=== PATIENT | female | born 1965 | race Caucasian/White ===

== ENCOUNTER 2017-06-15 14:04 | Inpatient (IN) | payer SELFPAY ==
[2017-06-15] MEDS ORDERED: Loperamide HCl 2 MG CAP PO PRN (16:44)
[2017-06-15] MEDS ORDERED: Dextrose 5% in Water 1,000 ML IV PRN (16:44)
[2017-06-15] MEDS ORDERED: Ondansetron ODT 4 MG TAB PO PRN (16:44)
[2017-06-15] MEDS ORDERED: Sodium Chloride 0.65% Nasal 44 ML BOT EA NARE PRN (16:44)
[2017-06-15] MEDS ORDERED: Senokot 8.6 MG TAB PO PRN (16:44)
[2017-06-15] MEDS ORDERED: Acetaminophen 325 MG TAB PO PRN (16:44)
[2017-06-15] MEDS ORDERED: Milk Of Magnesia 30 ML UDCUP PO PRN (16:44)
[2017-06-15] MEDS ORDERED: Diabetic Tussin 200 MG/10 ML UDCUP PO PRN (16:44)
[2017-06-15] MEDS ORDERED: Artificial Tears 18 DROP/0.9 ML EA EYE PRN (16:44)
[2017-06-15] MEDS ORDERED: Dextrose 50% Abboject 50 ML SYRINGE SLOW IVP PRN (16:44)
[2017-06-15] MEDS ORDERED: Mag-Al 1200 mg/1200 mg/30 ML UDCUP PO PRN (16:44)
[2017-06-15] MEDS ORDERED: Ondansetron HCl/PF 4 MG/2 ML Vial IVP PRN (16:44)
[2017-06-15] MEDS ORDERED: Eucerin (Mineral Oil/Petrolatum,White) 30 gm Jar TOP PRN (16:44)
[2017-06-15] MEDS ORDERED: Loratadine 10 MG TAB PO PRN (16:44)
[2017-06-15] MEDS ORDERED: Chloraseptic Spray 180 ml Bottle PO PRN (16:44)
--- NOTE | 2017-06-15 17:20 | HP ---
PRIMARY CARE PHYSICIAN: City call admission. REASON FOR ADMISSION: Laryngeal mass. HISTORY OF PRESENT ILLNESS: A 51-year-old female, who has underlying history of diabetes t ype 2, morbid obesity, hypertension, and tobacco abuse disorder, who went to [facility] with complaint of hoarseness of voice. The patient was also having cough and sore throa t for about a week. The patient was evaluated at [facility] and subsequently the patient was not feeling better and that is why she decided to go to the emergency room for evaluation. Initial ly, [facility] doctor. requested chest x-ray, but the patient was feeling more short of breat h and she was wheezing, and that is why they took her to the emergency room in [place]. The patien t also reports hoarseness of voice. She was having low grade fever, cough, malaise, weakness. She denies any flu-like illness. She denies any recent travel or sick exposure, but patient reports emmy t lately she was hearing her own wheezing. She denies any weight loss. She denies any hemoptysis. She denies any lower extremity edema or calf tenderness. At [facility], they suspected laryngitis/epiglottitis. The patient was given clindamyc in, epinephrine nebulization, Rocephin 2 grams, Solu-Medrol 125 mg, albuterol nebulization, and IV f luid, and subsequently she was transferred to our emergency room for evaluation. In our emergency room, Dr. Familia Neil saw this patient and the patient was found with laryngeal m ass suspected for cancer, and he advised to get admitted for further evaluation and treatment. REVIEW OF SYSTEMS: The following complete review of systems was negative, unless otherwise mentione d in the HPI or below: Constitutional: Weight loss or gain, ability to conduct usual activities. Skin: Rash, itching. E yes: Double vision, pain. ENT/Mouth: Nose bleeding, neck stiffness, pain, tenderness. Cardiovascular: Palpitations, dyspnea on exertion, orthopnea. Respiratory: Shortness of breath, w heezing, cough, hemoptysis, fever or night sweats. Gastrointestinal: Poor appetite, abdominal pain , heartburn, nausea, vomiting, constipation, or diarrhea. Genitourinary: Urgency, frequency, dysuri a, nocturia. Musculoskeletal: Pain, swelling. Neurologic/Psychiatric: Anxiety, depression. Kennedy rgy/Immunologic: Skin rash, bleeding tendency. Please see HPI for pertinent positives and negatives. All other review of systems reviewed and nega tive except as mentioned in the HPI. EMERGENCY ROOM COURSE: The patient is given clindamycin 900 mg, epinephrine nebulization x2, Roceph in 2 grams, Solu-Medrol 125 mg, albuterol nebulization, and IV fluid. ALLERGIES: No known drug allergies. CURRENT HOME MEDICATIONS: Levemir insulin dose not known, metformin dose not known. The patient di d not bring her medication and she is not able to tell me the name of medication, so unable to revie w at this point. PAST MEDICAL HISTORY: Diabetes type 2, hypertension, morbid obesity, and tobacco abuse disorder. PAST SURGICAL HISTORY: Reviewed and negative. PAST PSYCHIATRIC HISTORY: Reviewed and negative. SOCIAL HISTORY: The patient is smoking about 1 pack per day for the last many years. She denies an y alcohol abuse. She denies any other illicit drug abuse. FAMILY HISTORY: No strong family history of premature coronary artery disease, stroke, or cancer. PHYSICAL EXAMINATION: VITAL SIGNS: Currently, blood pressure 153/92, pulse 93, respiratory rate 24, temperature 97.7, sat uration 96% on 4 liter oxygen, and weight 102.5 kilograms. GENERAL: The patient is currently alert, awake, no obvious acute distress. HEENT: Head is normocephalic, atraumatic. Eyes: Pupils round, reactive to light. Extraocular mus tish intact. ENT: Oropharynx within normal limits. Moist mucous membranes. No oral lesions. No pharyngeal lamin thema, no exudate. NECK: Supple. Range of motion is normal. No meningeal signs of irritation. LUNGS: Bilateral end expiratory wheezing heard. CARDIAC: S1 and S2 regular. No murmur, no gallop, no rub. ABDOMEN: Soft, bowel sounds present, nontender, nondistended. No organomegaly, no mass, no suprapu bic tenderness. BACK: Unremarkable, no CVA tenderness. EXTREMITIES: Upper extremity passive movement of all joints are normal. Lower extremities: No callie ma. Good peripheral pulsation. SKIN: No skin rash. HEMATOLOGICAL: No lymphadenopathy. NEUROLOGIC: Nonfocal examination. The patient moves all 4 limbs. Plantar bilateral flexor. PSYCHIATRIC: Normal affect. SIGNIFICANT LABORATORY DATA: Blood tests done at [facility], reviewed. CBC: WBC 12.0 , hemoglobin 14.7, platelet 287. BMP: Sodium 132, potassium 4.1, chloride 93, carbon dioxide 30, B UN 11, creatinine 0.60, glucose 231, calcium 9.2. Lactic acid 1.2. LFT: AST 15, ALT 22, alkaline phosphatase 92, albumin 4.0. Urinalysis, microscopic hematuria. Tel emetry monitor showing sinus rhythm. ASSESSMENT AND PLAN: 1. Acute hypoxic respiratory failure, most likely related with acute chronic obstructive pulmonary disease exacerbation. This patient may have a new diagnosis of chronic obstructive pulmonary diseas e. The patient also has underlying laryngitis as well as laryngeal mass that also contributing to h er hypoxia. We will monitor closely. We will avoid sedatives. We will treat with oxygen, we will provide humidified oxygen. We will monitor daily, her oxygen requirement. We will treat with Solu- Medrol 20 mg IV q.8 hourly along with DuoNeb q.4 hourly, and Dulera 2 puffs inhalation b.i.d. We wi ll consider empiric antibiotic therapy with Rocephin 2 gram IV daily. 2. Chronic obstructive pulmonary disease exacerbation. This patient probably has new diagnosis of chronic obstructive pulmonary disease/asthma. Once patient's condition improves, then we will perfo rm pulmonary function test to rule out obstructive restrictive pathology. At this point, the patien t will be treated with Solu-Medrol 20 mg IV q.8 hourly, DuoNeb q.4 hourly, Dulera 2 puffs inhalation b.i.d., and oxygen to keep saturation above 92% and empiric antibiotic therapy with Rocephin 2 gram IV daily. 3. Laryngeal mass with acute laryngitis. We will check a Streptococcal screen. The patient is alr april on empiric antibiotic therapy with Rocephin. ENT, Dr. Familia Neil already consulted, and he is planning to do a laryngoscopy and biopsy to rule out laryngeal cancer. She may need laryngectomy if turning lathe tender to be cancer. 4. Diabetes type 2. We will start Levemir 10 units subcutaneously b.i.d., insulin as per sliding s theron protocol. Diabetic diet will be given. 5. Hypertension. We will use currently hydralazine p.r.n. basis for blood pressure control. Befor e discharge, we will change to oral antihypertensive medication including amlodipine or lisinopril. 6. Morbid obesity. Dietary education given, weight loss education given. Healthy lifestyle measur es discussed with the patient. 7. Tobacco abuse disorder. Smoking cessation counseling given. We will provide nicotine patch marquis cannon in hospital. 8. Deep venous thrombosis prophylaxis, Lovenox 40 mg subcu daily. 9. Gastrointestinal prophylaxis, Pepcid 20 mg p.o. b.i.d. 10. Code status: The patient is FULL CODE. The patient does not have any surrogate decision maker . 11. Disposition plan based on clinical course. We are expecting the patient's stay in hospital mor e than 2 midnights. Plan of care discussed with the patient and family member at bedside.
[2017-06-15] MEDS: Sodium Chloride 0.9% 1,000 ML IV SCH (18:45)
[2017-06-15] MEDS: HumaLOG 300 UNITS/3 ML VIAL SC PRN (18:45)
[2017-06-15] MEDS: Mometasone/Formoterol 120 PUFF INHALER INH SCH (18:53)
--- NOTE | 2017-06-15 19:44 | CON ---
DATE OF CONSULTATION: 06/15/2017 The patient is seen in consultation by Dr. Florentino in the ER for evaluation of stridor and possible epi glottitis. BRIEF HISTORY: This is a 51-year-old female who was transferred from [facility] for concern for ep iglottitis. There is thickened epiglottis on the CAT scan. Patient reports a several week history of progressive shortness of breath and inspiratory stridor and dyspnea on exertion. She denies any hemoptysis. She only reports some mild cough. She does report feeling as if she got mild cold in t he past 3-4 days, which made this rapidly progressed over the past day to two. No fevers. She is s till tolerating regular solids and liquids. She still has been smoking even to this stay. PAST MEDICAL HISTORY: Diabetes, hypertension. PAST SURGICAL HISTORY: Noncontributory. ALLERGIES: No known drug allergies. MEDICATIONS: Diabetic medicines and inhaler p.r.n. REVIEW OF SYSTEMS: General: No fevers, chills, or weight loss. HEENT: No history of progressive hoarseness of this n ature, only mild sinus and allergy drainage. Cardiovascular: No chest pains, palpitations. Pulmon etta: No cough or wheezing. Hematologic: No history of bleeding disorders. PHYSICAL EXAMINATION: GENERAL: Patient is resting comfortably upright. She has inspiratory stridor. Voice is harsh and raspy, otherwise she is in good spirits. NECK: No lymphadenopathy, no masses, thyroid within normal limits. EARS: TMs intact. Middle ear is well aerated. NOSE: Nasal cavity is clear anteriorly. ORAL CAVITY AND OROPHARYNX: Tonsils are 1+ to absent. There is no edema or erythema of the pharyng eal oral cavity mucosa. PROCEDURE: At the bedside, flexible laryngoscopy was performed after topical anesthesia and deconge stant was applied to the nasal cavity and the flexible laryngoscope was advanced in the right nasal cavity. Nasal cavity and nasopharynx showed no lesions. The lower pharynx and larynx is generally red. No evidence of epiglottitis. There is some stringy mucus that is thickened present. Otherwis e, there is a cauliflower exophytic lesion arising from what appears to be the left true vocal cord but extending to the anterior commissure causing limited vocal cord movement bilaterally. Overall a irway is 7 mm to 1 cm posteriorly secretions in the post-cricoid area. ASSESSMENT: 1. Laryngeal mass. 2. Stridor. 3. 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 No evidence of epiglottitis at this point, I recommend she have observations overnight and admitted to [facility] for IV fluid hydration and IV antibiot ics. We discussed risks, benefits and alternatives of biopsy, possible tracheotomy tomorrow in the operating room. She is cleared for full liquid diet today and tonight, n.p.o. after midnight.
[2017-06-15] MEDS: Insulin Detemir 100 UNITS/ML 10 UNITS in Pre-Filled Syringe SC SCH (21:00)
[2017-06-15] MEDS: Famotidine 20 MG TAB PO SCH (21:00)
[2017-06-16] MEDS: Sodium Chloride 0.9% 1,000 ML IV SCH ×3 (03:33→20:25)
[2017-06-16 03:43] LABS: Oxyhemoglobin 90.3 % (94.0-97.0); Sodium 135 mmol/L (135-148)
[2017-06-16 03:44] LABS: Modified Allen's Test POSITIVE
[2017-06-16 04:12] LABS: #Lymphocytes 1.1 thou/uL (1.20-3.40); #Monocytes 0.8 thou/uL (0.11-0.59); #Neutrophils 14.1 thou/uL (1.40-6.50); %Basophils 0.1 % (0.0-1.0); %Eosinophils 0.1 % (0.0-10.0); %Lymphocytes 6.8 % (21.0-51.0); %Monocytes 4.9 % (0.0-10.0); Hematocrit 47.3 % (36.0-47.0); Mean Platelet Volume 7.4 fL (7.4-10.4); Red Blood Cell (RBC) Count 4.86 mill/uL (4.20-5.40)
[2017-06-16 04:37] LABS: ALT (SGPT) 19 U/L (8-55); AST (SGOT) 15 U/L (5-34); Alkaline Phosphatase 97 U/L (40-150); Anion Gap 12 mmol/L (10-20); BUN (Urea Nitrogen) 10 mg/dL (7.0-18.7); Bilirubin, Total 0.3 mg/dL (0.2-1.2); Calc. Creatinine Clearance 164 mL/min (70-130); Calcium 9.1 mg/dL (7.8-10.44); Carbon Dioxide 29 mmol/L (22-29); Chloride 98 mmol/L (98-107); Estimated GFR-MDRD Greater than 90; Globulin 3.4 g/dL (2.4-3.5); Protein, Total 7.2 g/dL (6.0-8.3)
[2017-06-16] MEDS: Mometasone/Formoterol 120 PUFF INHALER INH SCH (06:31)
[2017-06-16 06:43] LABS: Oxyhemoglobin 91.7 % (94.0-97.0); Sodium 135 mmol/L (135-148)
[2017-06-16 06:44] LABS: Mode BIPAP; Pressure Support 15 cmH2O; Vent NO
[2017-06-16] MEDS ORDERED: FLU VACC QS2017-18 36 mo. & older 0.5 ML SYRINGE IM ONE (09:00)
[2017-06-16] MEDS ORDERED: Nicotine 21 MG PATCH TD SCH (09:00)
[2017-06-16] MEDS ORDERED: Midazolam HCl 2 mg/2 ml Vial ONE (09:04)
[2017-06-16] MEDS ORDERED: Propofol 1,000 MG/100 ML VIAL IV ONE ×2 (09:05→10:51)
[2017-06-16] MEDS ORDERED: Fentanyl 250 MCG/5 ML VIAL ONE (09:24)
[2017-06-16] MEDS: Insulin Detemir 100 UNITS/ML 10 UNITS in Pre-Filled Syringe SC SCH ×2 (09:25→20:22)
[2017-06-16] MEDS: Famotidine 20 MG TAB PO SCH (09:25)
[2017-06-16] MEDS ORDERED: EPINEPHrine 1 MG/ML AMP ONE (09:29)
[2017-06-16] MEDS ORDERED: Succinylcholine Chloride 20 MG/ML 10 ml SYRINGE FS ONE (09:47)
[2017-06-16] MEDS ORDERED: Propofol 200 MG/20 ML VIAL ONE (09:47)
--- NOTE | 2017-06-16 11:01 | PDOC.PN ---
- Subjective Encounter Start Date: 06/16/17 Encounter Start Time: 10:15 -: old records requested/rev pt required CCU transfer as she has not improved with BIPAP, last night required IMCU transfer due to respiratory distress - Objective Resuscitation Status: Resuscitation Status FULL:Full Resuscitation MAR Reviewed: Yes Vital Signs & Weight: Vital Signs (12 hours) Temp Pulse Resp BP BP Pulse Ox 06/16/17 10:17 105 H 06/16/17 09:15 105 H 28 H 100 06/16/17 08:10 98.2 F 80 16 99 06/16/17 08:00 98.2 F 06/16/17 06:57 97.6 F 96 20 178/89 H 94 L 06/16/17 06:29 101 H 06/16/17 06:28 102 H 22 H 97 06/16/17 04:30 96.6 F L 96 20 96 06/16/17 04:10 99 06/16/17 04:05 96.6 F L 82 20 156/98 H 96 06/16/17 00:00 98.9 F 83 18 167/66 H 06/15/17 23:59 80 16 95 Weight Weight 222 lb 7 oz Most Recent Monitor Data Heart Rate from ECG 94 NIBP 192/85 NIBP BP-Mean 120 Respiration from ECG 19 SpO2 98 I&O: 06/15/17 06/16/17 06/17/17 06:59 06:59 06:59 Intake Total 240 Output Total 550 Balance -310 Result Diagrams: 06/16/17 03:44 06/16/17 03:44 Additional Labs: Accuchecks 06/16/17 06/16/17 06/15/17 07:41 05:35 20:06 POC Glucose 246 H 257 H 338 H 06/15/17 16:59 POC Glucose 255 H EKG Reviewed by me: Yes (sinus tachycardia) Phys Exam - Physical Examination respi distress HEENT: PERRLA, moist MMs, sclera anicteric Neck: no JVD, supple Respiratory: no wheezing, no rales, no rhonchi silent chest Cardiovascular: RRR, no significant murmur, no rub tachycardia Gastrointestinal: soft, non-tender, no distention, positive bowel sounds obesity+ Musculoskeletal: no edema, pulses present Neurological: non-focal, normal sensation, moves all 4 limbs Lymphatic: no nodes Psychiatric: normal affect Skin: no rash, normal turgor Dx/Plan (1) Acute respiratory failure with hypoxia and hypercapnia Code(s): J96.01 - ACUTE RESPIRATORY FAILURE WITH HYPOXIA; J96.02 - ACUTE RESPIRATORY FAILURE WITH HYPERCAPNIA Status: Acute (2) Laryngeal mass Code(s): J38.7 - OTHER DISEASES OF LARYNX Status: Acute (3) Diabetes type 2, controlled Code(s): E11.9 - TYPE 2 DIABETES MELLITUS WITHOUT COMPLICATIONS Status: Chronic (4) Hypertension Code(s): I10 - ESSENTIAL (PRIMARY) HYPERTENSION Status: Chronic (5) Obesity (BMI 30-39.9) Code(s): E66.9 - OBESITY, UNSPECIFIED Status: Chronic (6) Tobacco abuse Code(s): Z72.0 - TOBACCO USE Status: Chronic - Plan cont current plan of care, plan discussed w/ family, continue antibiotics, respiratory therapy * she has not improved with bipap, she will need intubation * pulmonary following * ENT is planning to do surgery, may need laryngectomy and tracheostomy * medication reviewed as below * symptomatic treatment * prognosis is poor * continue rocephin * continue IV steroid * continue duoneb. Review of Systems - Review of Systems Constitutional: negative: Fever, Chills, Sweats, Weakness, Malaise, Other Respiratory: Cough, Shortness of Breath, SOB with Excertion. negative: Dry, Hemoptysis, Pleuritic Pain, Sputum, Wheezing Cardiovascular: Orthopnea. negative: Chest Pain, Palpitations, Paroxysmal Noc. Dyspnea, Edema, Light Headedness, Other Gastrointestinal: negative: Nausea, Vomiting, Abdominal Pain, Diarrhea, Constipation, Melena, Hematochezia, Other Genitourinary: negative: Dysuria, Frequency, Incontinence, Hematuria, Retention , Other Musculoskeletal: negative: Neck Pain, Shoulder Pain, Arm Pain, Back Pain, Hand Pain, Leg Pain, Foot Pain, Other Skin: negative: Rash, Lesions, Kirk, Bruising, Other - Medications/Allergies Allergies/Adverse Reactions: Allergies Allergy/AdvReac Type Severity Reaction Status Date / Time No Known Drug Allergies Allergy Verified 06/15/17 16:48 Medications: Current Medications Acetaminophen (Tylenol) 650 mg PO Q4H PRN PRN Reason: Headache/Fever or Pain Al Hydroxide/Mg Hydroxide (Maalox) 30 ml PO Q6H PRN PRN Reason: Heartburn or Indigestion Albuterol/Ipratropium (Duoneb) 3 ml NEB [id number] [facility] Last Admin: 06/16/17 09:15 Dose: 3 ml Artificial Tears (Tears Naturale) 0 drop EA EYE PRN PRN PRN Reason: Dry Eyes Dextrose/Water (Dextrose 50%) 25 gm SLOW IVP PRN PRN PRN Reason: Hypoglycemia Enoxaparin Sodium (Lovenox) 40 mg SC 0900 [facility] Famotidine (Pepcid) 20 mg PO BID [facility] Last Admin: 06/16/17 09:25 Dose: Not Given Glucagon (Glucagon) 1 mg IM PRN PRN PRN Reason: Hypoglycemia Guaifenesin (Robitussin Sf) 200 mg PO Q4H PRN PRN Reason: Cough Hydralazine HCl (Apresoline) 10 mg SLOW IVP Q4H PRN PRN Reason: Systolic BP > 180 Dextrose/Water (D5w) 1,000 mls @ 0 mls/hr IV .Q0M PRN; As Directed PRN Reason: Hypoglycemia Sodium Chloride (Normal Saline 0.9%) 1,000 mls @ 100 mls/hr IV .Q10H [facility] Last Admin: 06/16/17 03:33 Dose: 1,000 mls Insulin Detemir 10 units/ (Miscellaneous Medication) 0.1 mls @ 0 mls/hr SC HS [facility] Last Admin: 06/15/17 21:00 Dose: 0.1 mls Insulin Detemir 10 units/ (Miscellaneous Medication) 0.1 mls @ 0 mls/hr SC QAM [facility] Last Admin: 06/16/17 09:25 Dose: Not Given Ceftriaxone Sodium 2 gm/ (Sodium Chloride) 100 mls @ 200 mls/hr IVPB Q24HR [facility] Insulin Human Lispro (Humalog) 0 units SC .MODERATE SLIDING SC PRN PRN Reason: Moderate Correctional Scale Last Admin: 06/15/17 18:45 Dose: 4 unit Insulin Human Lispro (Humalog) 0 units SC .BEDTIME SLIDING SC PRN PRN Reason: Bedtime Correctional Scale Loperamide HCl (Imodium) 2 mg PO PRN PRN PRN Reason: Diarrhea/Loose Stools Loratadine (Claritin) 10 mg PO DAILYPRN PRN PRN Reason: Sinus Symptoms Magnesium Hydroxide (Milk Of Magnesium) 30 ml PO DAILYPRN PRN PRN Reason: Constipation Methylprednisolone Sodium Succinate (Solu-Medrol) 20 mg IVP Q8HR [facility] Last Admin: 06/16/17 06:02 Dose: 20 mg Mineral Oil/White Petrolatum (Eucerin Cream) 0 gm TOP BIDPRN PRN PRN Reason: Dry Skin Mometasone Furoate/Formoterol Fumar (Dulera 200 Mcg/5 Mcg Inhaler) 2 puff INH BID-RT [facility] Last Admin: 06/16/17 06:31 Dose: Not Given Nicotine (Nicoderm Patch) 21 mg TD DAILY MARY Ondansetron HCl (Zofran Odt) 4 mg PO Q6H PRN PRN Reason: Nausea/Vomiting Ondansetron HCl (Zofran) 4 mg IVP Q6H PRN PRN Reason: Nausea/Vomiting Phenol (Chloraseptic [place] 180 Ml Bot) 0 ml PO PRN PRN PRN Reason: Sore Throat Senna (Senokot) 2 tab PO HSPRN PRN PRN Reason: Constipation Sodium Chloride ([place] Nasal [place] 0.65%) 0 ml EA NARE QIDPRN PRN PRN Reason: Nasal Congestion
[2017-06-16] MEDS ORDERED: Lacri-Lube Opth Oint 3.5 GM TUBE EA EYE PRN (11:09)
[2017-06-16] MEDS ORDERED: Sedation Protocol FS ONE (11:09)
[2017-06-16] MEDS: cefTRIAXone\\ROCEPHIN 2 GM in Sodium Chloride 0.9% 100 ML IVPB SCH (11:11)
[2017-06-16] MEDS: Enoxaparin Sodium 40 MG/0.4 ML SYRINGE SC SCH (11:11)
[2017-06-16] MEDS ORDERED: Lorazepam 2 MG/ML VIAL SLOW IVP PRN (11:13)
[2017-06-16] MEDS ORDERED: Fentanyl 20 MCG/ML 250 ML IVPB SCH (11:13)
[2017-06-16 11:50] LABS: Oxyhemoglobin 91.3 % (94.0-97.0); Sodium 136 mmol/L (135-148)
[2017-06-16 11:57] LABS: Modified Allen's Test POSITIVE; Vent YES
[2017-06-16 11:58] LABS: Mechanical Tidal Volume 430 ml; Mode SIMV; Pressure Support 17 cmH2O
[2017-06-16] MEDS: HumaLOG 300 UNITS/3 ML VIAL SC PRN ×2 (12:18→18:19)
--- NOTE | 2017-06-16 12:49 | CON ---
DATE OF SERVICE: 06/16/2017 SERVICE: Pulmonary Medicine. REASON FOR CONSULTATION: Respiratory failure. HISTORY OF PRESENT ILLNESS: The patient is a 51-year-old white female with past medical history significant for new diagnosis of increasing dysphagia and dysphonia. She had increasing difficulty breathing with stridor. She presented to the Emergency Department in respiratory distress. She was seen yesterday by ear, nose and throat and they are planning on doing an operation today including a biopsy and possible tracheostomy based on what they find. Overnight, she down from the floor to the [facility]. She had placed on noninvasive ventilation, but further decompensated and subsequently landed in the ICU. She developed hypercapnic acidosis. She had a difficult time breathing. On BiPAP, she failed to clear that acidosis. She developed increasing altered mentation. As such, we are going to intubate her, but they moved up her surgery and she is being taken to the OR as I speak. She had no other precipitating event so far as I am aware. Otherwise, she was in her usual state of health. She is not able to provide additional elements of the history at this time given her encephalopathy. PAST MEDICAL HISTORY: 1. Type 2 diabetes mellitus. 2. Hypertension. 3. Obesity. 4. Tobacco abuse. PAST SURGICAL HISTORY: Negative. SOCIAL HISTORY: She smokes a pack a day for greater than 20 years. She denies any alcohol or illicit drugs. FAMILY HISTORY: Noncontributory. REVIEW OF SYSTEMS: This could not be obtained as the patient is currently encephalopathic. PHYSICAL EXAMINATION: VITAL SIGNS: Afebrile, pulse 94, blood pressure 192/85, respirations 19, saturation 98% on 21% FIO2 being delivered by BiPAP at 10/5. GENERAL: Patient is somnolent. HEENT: Normocephalic, atraumatic. Sclerae are white, conjunctivae pink. Oral and nasal mucosa is moist without lesions. LUNGS: There is absolutely absent breath sounds. She is moving very little air. I cannot appreciate any adventitious sounds, but truth be told, she is not moving enough air to hear it. HEART: Normal rate. Regular. ABDOMEN: Soft, nontender, nondistended, bowel sounds positive. MUSCULOSKELETAL: No cyanosis or clubbing. No pitting in the bilateral lower extremities. NEUROLOGIC: Grossly nonfocal. LABORATORY DATA: WBC 16.0, hemoglobin 15.1, platelets 348,000 with a neutrophil count of 88%. PH 7.31, pCO2 67, pO2 68 on a PEEP of 7 and an FIO2 of 28%. Basic metabolic profile and liver function studies are completely unremarkable. Blood sugars are out of control and ranged from 246-338. Tonsils swab is negative for group A Streptococcus. IMAGIN. Chest x-ray demonstrates no acute cardiopulmonary abnormality. Lung volumes are normal. I do not appreciate any pneumonia. Trachea is midline and looks to be widely patent. 2. X-ray of the soft tissues of the neck, looking at the epiglottis demonstrated some swelling in the laryngeal area. ASSESSMENT: 1. Metabolic encephalopathy. 2. Acute hypercapnic respiratory failure. 3. Fixed extrathoracic airway obstruction. 4. Laryngeal mass, possible. 5. Type 2 diabetes mellitus. 6. Tobacco abuse. PLAN: She will go down to the operating room and likely come back with a tracheostomy. I will certainly continue to follow in the postoperative setting. Ventilator adjustments will be made to target goals of respiration, when she returns from the OR if she is on a ventilator. CRITICAL CARE TIME: 45 minutes. RAVI
--- NOTE | 2017-06-16 13:34 | OP ---
PREOPERATIVE DIAGNOSES: Chronic obstructive pulmonary disease, tobacco abuse, acute upper airway ob struction, and obstructing laryngeal lesion. POSTOPERATIVE DIAGNOSES: Chronic obstructive pulmonary disease, tobacco abuse, acute upper airway o bstruction, obstructing laryngeal lesion, and Arturo's edema. 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 Biopsies were obtained and spe cimen was sent as it was captured in a suction trap. PROCEDURE IN DETAIL: After consent was obtained, the patient was identified, brought to the operati ng room and placed on the operating table in supine position. General anesthesia was obtained throu gh the GlideScope. We then proceeded with laryngoscopy and found the vocal folds to be extensively edematous including both the true and false cords. No discrete tumor was identified, but we were ab le to get biopsies of the true and false cords on the left and right side. We also captured the spe cimen with the shaver. The normal laryngeal aperture was appreciated after the shaver was used to r emove the polyps and epinephrine was placed to stop bleeding. The patient will remain intubated ove rnight while her pulmonary status stabilizes. There were no complications.
[2017-06-16] MEDS: Propofol 1,000 MG/100 ML VIAL IV PRN ×3 (14:17→21:20)
[2017-06-16] MEDS: Pantoprazole 40 MG VIAL IVP SCH (20:21)
[2017-06-17] MEDS: Propofol 1,000 MG/100 ML VIAL IV PRN ×6 (00:04→23:50)
[2017-06-17 04:31] LABS: Anion Gap 12 mmol/L (10-20); BUN (Urea Nitrogen) 17 mg/dL (7.0-18.7); Calc. Creatinine Clearance 161 mL/min (70-130); Calcium 8.3 mg/dL (7.8-10.44); Carbon Dioxide 26 mmol/L (22-29); Chloride 103 mmol/L (98-107); Estimated GFR-MDRD Greater than 90
[2017-06-17] MEDS: Sodium Chloride 0.9% 1,000 ML IV SCH ×2 (04:32→16:42)
[2017-06-17] MEDS: HumaLOG 300 UNITS/3 ML VIAL SC PRN ×2 (04:34→10:06)
[2017-06-17 05:24] LABS: Band 1 % (5-11); Hematocrit 37.7 % (36.0-47.0); Mean Platelet Volume 7.5 fL (7.4-10.4); Neutrophil 50 % (42-75); Reactive Lymphocytes 5 % (0-10); Red Blood Cell (RBC) Count 3.93 mill/uL (4.20-5.40); White Blood Cell (WBC) Count 9.2 thou/uL (4.8-10.8)
[2017-06-17] MEDS: Insulin Detemir 100 UNITS/ML 10 UNITS in Pre-Filled Syringe SC SCH ×2 (09:56→21:26)
[2017-06-17] MEDS: Enoxaparin Sodium 40 MG/0.4 ML SYRINGE SC SCH (09:56)
[2017-06-17] MEDS: Pantoprazole 40 MG VIAL IVP SCH ×2 (09:56→21:27)
--- NOTE | 2017-06-17 10:17 | RAD ---
FRONTAL VIEW CHEST: COMPARISON: Examination 2 days prior. INDICATION: Ventilated patient, ICU patient. FINDINGS: Interval placement of the endotracheal tube with tip at the cephalad aspect of the thoracic inlet, a nd interval placement of an enteric catheter traversing the left abdomen below the field of view. T here are bilateral pleural effusions, as well as vascular congestion and interstitial edema. Linear densities at the left lung base favor atelectasis. There is prominence of the cardiac silhouette a t least in part due to accentuation by portable semiupright technique. Extrinsic artifact limits de tail. IMPRESSION: Evidence of edema with pleural effusions, and left basilar atelectasis. Recommend continued followup. POS: [facility]
[2017-06-17] MEDS: cefTRIAXone\\ROCEPHIN 2 GM in Sodium Chloride 0.9% 100 ML IVPB SCH (11:07)
--- NOTE | 2017-06-17 11:58 | PDOC.PN ---
- Subjective Encounter Start Date: 06/17/17 Encounter Start Time: 07:00 Subjective: on vent, awake, not in distress - Objective Resuscitation Status: Resuscitation Status FULL:Full Resuscitation MAR Reviewed: Yes Vital Signs & Weight: Vital Signs (12 hours) Temp Pulse Resp BP Pulse Ox 06/17/17 10:00 14 06/17/17 08:00 98.4 F 74 18 97 06/17/17 06:14 97 06/17/17 06:11 74 117/57 L 06/17/17 06:10 70 17 97 06/17/17 05:59 0 L 06/17/17 03:57 20 06/17/17 03:00 98.2 F 06/17/17 02:39 70 15 96 06/17/17 02:00 21 H 06/17/17 00:00 99.4 F 21 H Weight Admit Weight 222 lb Weight 224 lb 13.944 oz Most Recent Monitor Data Heart Rate from ECG 64 NIBP 157/78 NIBP BP-Mean 95 Respiration from ECG 17 SpO2 96 I&O: 06/16/17 06/17/17 06/18/17 06:59 06:59 06:59 Intake Total 240 2662.9 29.1 Output Total 550 755 139 Balance -310 1907.9 -109.9 Result Diagrams: 06/17/17 03:10 06/17/17 03:10 Additional Labs: Accuchecks 06/17/17 06/16/17 06/16/17 10:04 22:05 18:16 POC Glucose 184 H 157 H 199 H 06/16/17 12:11 POC Glucose 286 H Phys Exam - Physical Examination HEENT: PERRLA, sclera anicteric Neck: no JVD, supple Respiratory: no wheezing, no rales Cardiovascular: RRR, no significant murmur Gastrointestinal: soft, non-tender, positive bowel sounds Musculoskeletal: no edema, pulses present Neurological: non-focal, moves all 4 limbs Dx/Plan (1) Acute respiratory failure with hypoxia and hypercapnia Code(s): J96.01 - ACUTE RESPIRATORY FAILURE WITH HYPOXIA; J96.02 - ACUTE RESPIRATORY FAILURE WITH HYPERCAPNIA Status: Acute (2) Laryngeal mass Code(s): J38.7 - OTHER DISEASES OF LARYNX Status: Acute Comment: s/p laryngoscopy with biopsy (3) Diabetes type 2, controlled Code(s): E11.9 - TYPE 2 DIABETES MELLITUS WITHOUT COMPLICATIONS Status: Chronic Qualifiers: Diabetes mellitus complication status: with unspecified complications Diabetes mellitus fdc insulin use: without fdc use Qualified Code( s): E11.8 - Type 2 diabetes mellitus with unspecified complications (4) Hypertension Code(s): I10 - ESSENTIAL (PRIMARY) HYPERTENSION Status: Chronic Qualifiers: Hypertension type: essential hypertension Qualified Code(s): I10 - Essential (primary) hypertension (5) Obesity (BMI 30-39.9) Code(s): E66.9 - OBESITY, UNSPECIFIED Status: Chronic - Plan weaning per pulm advice -: is on ceftriaxone, nebs -: may add steroids if ok with ent -: gentle iv hydration * . Review of Systems - Medications/Allergies Allergies/Adverse Reactions: Allergies Allergy/AdvReac Type Severity Reaction Status Date / Time No Known Drug Allergies Allergy Verified 06/15/17 16:48 Medications: Current Medications Acetaminophen (Tylenol) 650 mg PO Q4H PRN PRN Reason: Headache/Fever or Pain Al Hydroxide/Mg Hydroxide (Maalox) 30 ml PO Q6H PRN PRN Reason: Heartburn or Indigestion Albuterol/Ipratropium (Duoneb) 3 ml NEB [id number] [facility] Last Admin: 06/17/17 06:10 Dose: 3 ml Artificial Tears (Tears Naturale) 0 drop EA EYE PRN PRN PRN Reason: Dry Eyes Dextrose/Water (Dextrose 50%) 25 gm SLOW IVP PRN PRN PRN Reason: Hypoglycemia Enoxaparin Sodium (Lovenox) 40 mg SC 0900 [facility] Last Admin: 06/17/17 09:56 Dose: 40 mg Glucagon (Glucagon) 1 mg IM PRN PRN PRN Reason: Hypoglycemia Hydralazine HCl (Apresoline) 10 mg SLOW IVP Q4H PRN PRN Reason: Systolic BP > 180 Dextrose/Water (D5w) 1,000 mls @ 0 mls/hr IV .Q0M PRN; As Directed PRN Reason: Hypoglycemia Sodium Chloride (Normal Saline 0.9%) 1,000 mls @ 100 mls/hr IV .Q10H [facility] Last Admin: 06/17/17 04:32 Dose: 1,000 mls Insulin Detemir 10 units/ (Miscellaneous Medication) 0.1 mls @ 0 mls/hr SC HS [facility] Last Admin: 06/16/17 20:22 Dose: 0.1 mls Insulin Detemir 10 units/ (Miscellaneous Medication) 0.1 mls @ 0 mls/hr SC QAM [facility] Last Admin: 06/17/17 09:56 Dose: 0.1 mls Ceftriaxone Sodium 2 gm/ (Sodium Chloride) 100 mls @ 200 mls/hr IVPB Q24HR [facility] Last Admin: 06/17/17 11:07 Dose: 100 mls Fentanyl (Fentanyl Cadd) 250 mls @ 0 mls/hr IVPB INF [facility]; Titrate PRN Reason: Protocol Stop: 07/16/17 11:13 Last Admin: 06/16/17 15:34 Dose: 250 mls Fentanyl Citrate (Fentanyl Bolus) 250 mls @ 0 mls/hr IVPB PRN PRN; As Directed PRN Reason: VENTILATION SEDATION PROTOCOL Stop: 07/16/17 11:13 Insulin Human Lispro (Humalog) 0 units SC .MODERATE SLIDING SC PRN PRN Reason: Moderate Correctional Scale Last Admin: 06/17/17 10:06 Dose: 2 unit Insulin Human Lispro (Humalog) 0 units SC .BEDTIME SLIDING SC PRN PRN Reason: Bedtime Correctional Scale Loperamide HCl (Imodium) 2 mg PO PRN PRN PRN Reason: Diarrhea/Loose Stools Loratadine (Claritin) 10 mg PO DAILYPRN PRN PRN Reason: Sinus Symptoms Lorazepam (Ativan) 2 mg SLOW IVP Q2H PRN PRN Reason: Anxiety to achieve Gomez 2-3 Stop: 07/16/17 11:13 Magnesium Hydroxide (Milk Of Magnesium) 30 ml PO DAILYPRN PRN PRN Reason: Constipation Mineral Oil/White Petrolatum (Eucerin Cream) 0 gm TOP BIDPRN PRN PRN Reason: Dry Skin Mineral Oil/White Petrolatum (Lacri-Lube Ointment) 0 gm EA EYE PRN PRN PRN Reason: Dry Eyes Morphine Sulfate (Morphine Sulfate) 2 mg SLOW IVP Q2H PRN PRN Reason: TO ACHIEVE LINDSEY SCORE 2-3 Stop: 07/16/17 11:13 Ondansetron HCl (Zofran Odt) 4 mg PO Q6H PRN PRN Reason: Nausea/Vomiting Ondansetron HCl (Zofran) 4 mg IVP Q6H PRN PRN Reason: Nausea/Vomiting Pantoprazole Sodium (Protonix) 40 mg IVP Q12HR [facility] Last Admin: 06/17/17 09:56 Dose: 40 mg Propofol (Diprivan) 1,000 mg IV INF PRN; Protocol PRN Reason: TO ACHIEVE GOMEZ SCORE 2-3 Stop: 07/16/17 11:13 Last Admin: 06/17/17 04:31 Dose: 1,000 mg Senna (Senokot) 2 tab PO HSPRN PRN PRN Reason: Constipation Sodium Chloride ([place] Nasal [place] 0.65%) 0 ml EA NARE QIDPRN PRN PRN Reason: Nasal Congestion Sodium Chloride (Flush - Normal Saline) 10 ml IV BID [facility] Last Admin: 06/17/17 09:56 Dose: 10 ml
[2017-06-17 12:26] VITALS: BMI 38.6
--- NOTE | 2017-06-17 13:55 | PRG ---
DATE OF SERVICE: 06/17/2017 SERVICE: Pulmonary Medicine. INTERVAL HISTORY: The patient is doing great from a cardiovascular and respiratory standpoint. Her oxygen requirements are improving. This morning, we gave her spontaneous breathing trial on which she did absolutely fantastic. That being said, we dropped her cough and she had almost nonexistent leak and it was only associated with a very hard cough. She denies any current fevers, chills, naus ea or vomiting. She is a little bit stressed out. Herbertartem came in to talk her earlier and lamin d her and she thought she was getting her last rites and was about to . This has been clarified with her and she understands that we are waiting on the official pathology, but we likely have a non malignant process in that she should make a full recovery. She knows that we just simply waiting fo r the inflammation in her throat to settle down a touch. PHYSICAL EXAMINATION: VITAL SIGNS: T-max 100.6, pulse is 66, blood pressure 127/96, respirations 17, saturation 95% on 27 % FiO2 and a PEEP of 5. GENERAL: The patient is awake, alert, in no apparent distress. LUNGS: Excellent air entry. There is no prolonged expiratory phase, wheezing or crackles. HEART: Normal rate, regular. ABDOMEN: Soft, nontender, nondistended. Bowel sounds positive. MUSCULOSKELETAL: No cyanosis or clubbing. No pitting in the bilateral lower extremities. NEUROLOGIC: Grossly nonfocal. LABORATORY DATA: WBC is 9.2, which has significantly improved; hemoglobin 12.3; platelets 261,000. Band count is 1%. Basic metabolic profile is otherwise unremarkable. IMAGING: Chest x-ray demonstrates evidence of edema with pleural effusions and left basilar atelect asis. ASSESSMENT: 1. Acute hypoxic respiratory failure, improving. 2. Arturo's edema resulting in stridor/upper airway compromise, status post surgical procedure. 3. Acute hypercapnic respiratory failure, resolved. 4. Type 2 diabetes mellitus. 5. Tobacco abuse. 6. Possible negative pressure pulmonary edema. PLAN: We will leave the patient intubated for the next 24 hours waiting for the inflammation in her throat to settle down. I will give her a couple doses of steroids over this period of time, though I am doubtful that these are going to increase the rapidity with which the swelling decreases. Mul tiple ventilator adjustments have been made in order to improve on patient comfort. She found the m ost comfortable setting on pressure control ventilation. Pulmonary Critical Care will continue to so santos while the patient remains in-house. Critical care time: 30 minutes.
[2017-06-18] MEDS: Sodium Chloride 0.9% 1,000 ML IV SCH ×3 (02:45→15:26)
[2017-06-18] MEDS: Propofol 1,000 MG/100 ML VIAL IV PRN (03:45)
[2017-06-18 05:29] LABS: Hematocrit 43.4 % (36.0-47.0); Mean Platelet Volume 7.4 fL (7.4-10.4); Red Blood Cell (RBC) Count 4.46 mill/uL (4.20-5.40); White Blood Cell (WBC) Count 8.3 thou/uL (4.8-10.8)
[2017-06-18 05:30] LABS: Band 1 % (5-11); Neutrophil 66 % (42-75)
[2017-06-18 05:41] LABS: Anion Gap 12 mmol/L (10-20); BUN (Urea Nitrogen) 15 mg/dL (7.0-18.7); Calc. Creatinine Clearance 0 mL/min (70-130); Calcium 8.4 mg/dL (7.8-10.44); Carbon Dioxide 25 mmol/L (22-29); Chloride 106 mmol/L (98-107); Estimated GFR-MDRD Greater than 90
[2017-06-18] MEDS ORDERED: Sodium Chloride 0.9% 15 ML NEB ONE (08:26)
[2017-06-18] MEDS: Pantoprazole 40 MG VIAL IVP SCH ×2 (09:08→20:03)
[2017-06-18] MEDS: Enoxaparin Sodium 40 MG/0.4 ML SYRINGE SC SCH (09:09)
[2017-06-18] MEDS: Insulin Detemir 100 UNITS/ML 10 UNITS in Pre-Filled Syringe SC SCH ×2 (09:09→22:05)
[2017-06-18] MEDS: cefTRIAXone\\ROCEPHIN 2 GM in Sodium Chloride 0.9% 100 ML IVPB SCH (10:38)
[2017-06-18] MEDS: HumaLOG 300 UNITS/3 ML VIAL SC PRN ×3 (10:39→22:01)
[2017-06-18] MEDS: Dexamethasone 4 MG in Sodium Chloride 0.9% 50 ML IVPB SCH ×2 (10:47→17:12)
--- NOTE | 2017-06-18 11:44 | PDOC.PN ---
- Subjective Encounter Start Date: 06/18/17 Encounter Start Time: 09:15 Subjective: is on vent, awake -: moves all extremities - Objective Resuscitation Status: Resuscitation Status FULL:Full Resuscitation MAR Reviewed: Yes Vital Signs & Weight: Vital Signs (12 hours) Temp Pulse Resp BP Pulse Ox 06/18/17 11:30 75 24 H 92 L 06/18/17 08:25 97 25 H 89 L 06/18/17 08:00 98.7 F 82 20 96 06/18/17 07:47 73 11 L 95 06/18/17 06:34 95 06/18/17 06:30 71 126/72 06/18/17 06:00 15 06/18/17 04:00 99.1 F 12 06/18/17 02:39 83 11 L 94 L 06/18/17 02:00 19 06/18/17 00:00 98.8 F 17 Weight Admit Weight 222 lb Weight 3.644 oz Most Recent Monitor Data Heart Rate from ECG 81 NIBP 198/103 NIBP BP-Mean 138 Respiration from ECG 25 SpO2 94 I&O: 06/17/17 06/18/17 06/19/17 06:59 06:59 06:59 Intake Total 2662.9 3415.25 173.9 Output Total 755 753 720 Balance 1907.9 2662.25 -546.1 Result Diagrams: 06/18/17 03:55 06/18/17 03:55 Additional Labs: Accuchecks 06/18/17 06/18/17 06/17/17 10:32 03:55 21:30 POC Glucose 175 H 118 H 107 06/17/17 16:40 POC Glucose 129 H Phys Exam - Physical Examination HEENT: PERRLA, moist MMs Neck: no JVD, supple Respiratory: no wheezing, no rales Cardiovascular: RRR, no significant murmur Gastrointestinal: soft, non-tender, positive bowel sounds Musculoskeletal: no edema, pulses present Neurological: non-focal, moves all 4 limbs Dx/Plan (1) Acute respiratory failure with hypoxia and hypercapnia Code(s): J96.01 - ACUTE RESPIRATORY FAILURE WITH HYPOXIA; J96.02 - ACUTE RESPIRATORY FAILURE WITH HYPERCAPNIA Status: Acute (2) Laryngeal mass Code(s): J38.7 - OTHER DISEASES OF LARYNX Status: Acute Comment: s/p laryngoscopy with biopsy (3) Diabetes type 2, controlled Code(s): E11.9 - TYPE 2 DIABETES MELLITUS WITHOUT COMPLICATIONS Status: Chronic Qualifiers: Diabetes mellitus complication status: with unspecified complications Diabetes mellitus fpc insulin use: without termite renewal inspector use Qualified Code( s): E11.8 - Type 2 diabetes mellitus with unspecified complications (4) Hypertension Code(s): I10 - ESSENTIAL (PRIMARY) HYPERTENSION Status: Chronic Qualifiers: Hypertension type: essential hypertension Qualified Code(s): I10 - Essential (primary) hypertension (5) Obesity (BMI 30-39.9) Code(s): E66.9 - OBESITY, UNSPECIFIED Status: Chronic - Plan histopath: no malignancy -: likely extubation today -: is on ceftriaxone, steroids, nebs -: continue levemir * . Review of Systems - Medications/Allergies Allergies/Adverse Reactions: Allergies Allergy/AdvReac Type Severity Reaction Status Date / Time No Known Drug Allergies Allergy Verified 06/15/17 16:48 Medications: Current Medications Acetaminophen (Tylenol) 650 mg PO Q4H PRN PRN Reason: Headache/Fever or Pain Al Hydroxide/Mg Hydroxide (Maalox) 30 ml PO Q6H PRN PRN Reason: Heartburn or Indigestion Albuterol/Ipratropium (Duoneb) 3 ml NEB [id number] [facility] Last Admin: 06/18/17 11:30 Dose: 3 ml Artificial Tears (Tears Naturale) 0 drop EA EYE PRN PRN PRN Reason: Dry Eyes Dextrose/Water (Dextrose 50%) 25 gm SLOW IVP PRN PRN PRN Reason: Hypoglycemia Enoxaparin Sodium (Lovenox) 40 mg SC 0900 [facility] Last Admin: 06/18/17 09:09 Dose: 40 mg Glucagon (Glucagon) 1 mg IM PRN PRN PRN Reason: Hypoglycemia Hydralazine HCl (Apresoline) 10 mg SLOW IVP Q4H PRN PRN Reason: Systolic BP > 180 Dextrose/Water (D5w) 1,000 mls @ 0 mls/hr IV .Q0M PRN; As Directed PRN Reason: Hypoglycemia Sodium Chloride (Normal Saline 0.9%) 1,000 mls @ 100 mls/hr IV .Q10H [facility] Last Admin: 06/18/17 02:45 Dose: 1,000 mls Insulin Detemir 10 units/ (Miscellaneous Medication) 0.1 mls @ 0 mls/hr SC HS [facility] Last Admin: 06/17/17 21:26 Dose: Not Given Insulin Detemir 10 units/ (Miscellaneous Medication) 0.1 mls @ 0 mls/hr SC QAM [facility] Last Admin: 06/18/17 09:09 Dose: 0.1 mls Fentanyl (Fentanyl Cadd) 250 mls @ 0 mls/hr IVPB INF [facility]; Titrate PRN Reason: Protocol Stop: 07/16/17 11:13 Last Admin: 06/16/17 15:34 Dose: 250 mls Fentanyl Citrate (Fentanyl Bolus) 250 mls @ 0 mls/hr IVPB PRN PRN; As Directed PRN Reason: VENTILATION SEDATION PROTOCOL Stop: 07/16/17 11:13 Ceftriaxone Sodium 2 gm/ (Sodium Chloride) 100 mls @ 200 mls/hr IVPB 1100 [facility] Last Admin: 06/18/17 10:38 Dose: 100 mls Dexamethasone 4 mg/ Sodium (Chloride) 50.4 mls @ 100 mls/hr IVPB Q6HR [facility] Last Admin: 06/18/17 10:47 Dose: 50.4 mls Insulin Human Lispro (Humalog) 0 units SC .MODERATE SLIDING SC PRN PRN Reason: Moderate Correctional Scale Last Admin: 06/18/17 10:39 Dose: 2 unit Insulin Human Lispro (Humalog) 0 units SC .BEDTIME SLIDING SC PRN PRN Reason: Bedtime Correctional Scale Loperamide HCl (Imodium) 2 mg PO PRN PRN PRN Reason: Diarrhea/Loose Stools Loratadine (Claritin) 10 mg PO DAILYPRN PRN PRN Reason: Sinus Symptoms Lorazepam (Ativan) 2 mg SLOW IVP Q2H PRN PRN Reason: Anxiety to achieve Gomez 2-3 Stop: 07/16/17 11:13 Last Admin: 06/17/17 13:48 Dose: 2 mg Magnesium Hydroxide (Milk Of Magnesium) 30 ml PO DAILYPRN PRN PRN Reason: Constipation Mineral Oil/White Petrolatum (Eucerin Cream) 0 gm TOP BIDPRN PRN PRN Reason: Dry Skin Mineral Oil/White Petrolatum (Lacri-Lube Ointment) 0 gm EA EYE PRN PRN PRN Reason: Dry Eyes Morphine Sulfate (Morphine Sulfate) 2 mg SLOW IVP Q2H PRN PRN Reason: TO ACHIEVE LINDSEY SCORE 2-3 Stop: 07/16/17 11:13 Ondansetron HCl (Zofran Odt) 4 mg PO Q6H PRN PRN Reason: Nausea/Vomiting Ondansetron HCl (Zofran) 4 mg IVP Q6H PRN PRN Reason: Nausea/Vomiting Pantoprazole Sodium (Protonix) 40 mg IVP Q12HR [facility] Last Admin: 06/18/17 09:08 Dose: 40 mg Propofol (Diprivan) 1,000 mg IV INF PRN; Protocol PRN Reason: TO ACHIEVE GOMEZ SCORE 2-3 Stop: 07/16/17 11:13 Last Admin: 06/18/17 03:45 Dose: 1,000 mg Senna (Senokot) 2 tab PO HSPRN PRN PRN Reason: Constipation Sodium Chloride ([place] Nasal [place] 0.65%) 0 ml EA NARE QIDPRN PRN PRN Reason: Nasal Congestion Sodium Chloride (Flush - Normal Saline) 10 ml IV BID [facility] Last Admin: 06/18/17 09:08 Dose: 10 ml
[2017-06-18] MEDS: hydrALAZINE 20 MG/ML VIAL SLOW IVP PRN (12:40)
[2017-06-18] MEDS ORDERED: Amlodipine 10 MG TAB PO SCH (15:00)
[2017-06-18] MEDS: cloNIDine 0.1 MG TAB PO SCH ×2 (15:25→20:03)
--- NOTE | 2017-06-18 16:37 | PRG ---
DATE OF SERVICE: 06/18/2017 SUBJECTIVE: This morning, awake, alert, and responsive, on low dose Diprivan. A cuff was deflated. Clearly, she has an air leak, can hear some audible rhonchi upper airway. OBJECTIVE: VITAL SIGNS: Blood pressure 120/72, sats are 95%, temperature 18. I's and O's are 3415 in and 753 out. CHEST: Revealed decreased breath sounds without any wheezing. Anterior rhonchi. CARDIAC: Normal S1 and S2. No gallops. ABDOMEN: Soft. No masses. NEUROLOGIC: She is awake, alert, and responsive. LABORATORY DATA: Otherwise, chest x-ray shows adequate endotracheal tube, there is left retrocardia c density. IMPRESSION: Status post respiratory failure, laryngeal edema, obesity, diabetes, and hypertension. PLAN: She can wean and extubate. We will follow in the ICU. Continue supportive care, continue neb treatment. On Decadron. One-half hour critical care time.
[2017-06-19] MEDS: Dexamethasone 4 MG in Sodium Chloride 0.9% 50 ML IVPB SCH ×2 (00:11→05:07)
[2017-06-19 03:55] LABS: Anion Gap 14 mmol/L (10-20); BUN (Urea Nitrogen) 7 mg/dL (7.0-18.7); Calc. Creatinine Clearance 0 mL/min (70-130); Calcium 9.4 mg/dL (7.8-10.44); Carbon Dioxide 27 mmol/L (22-29); Chloride 100 mmol/L (98-107); Estimated GFR-MDRD Greater than 90
[2017-06-19 04:03] LABS: Band 4 % (5-11); Hematocrit 43.5 % (36.0-47.0); Mean Platelet Volume 7.1 fL (7.4-10.4); Metamyelocyte 1 % (0-0); Neutrophil 79 % (42-75); Reactive Lymphocytes 1 % (0-10); White Blood Cell (WBC) Count 10.5 thou/uL (4.8-10.8)
[2017-06-19] MEDS: hydrALAZINE 20 MG/ML VIAL SLOW IVP PRN ×2 (05:15→06:13)
[2017-06-19] MEDS: HumaLOG 300 UNITS/3 ML VIAL SC PRN ×4 (06:23→21:25)
[2017-06-19] MEDS: cloNIDine 0.1 MG TAB PO SCH ×3 (08:38→21:19)
[2017-06-19] MEDS: Amlodipine 10 MG TAB PO SCH (08:38)
[2017-06-19] MEDS: Enoxaparin Sodium 40 MG/0.4 ML SYRINGE SC SCH (08:38)
[2017-06-19] MEDS: Insulin Detemir 100 UNITS/ML 10 UNITS in Pre-Filled Syringe SC SCH ×2 (08:39→21:19)
[2017-06-19] MEDS: Pantoprazole 40 MG VIAL IVP SCH ×2 (08:39→21:19)
--- NOTE | 2017-06-19 10:17 | PDOC.PN ---
- Subjective Encounter Start Date: 06/19/17 Encounter Start Time: 09:50 Subjective: is sitting on bed, still has hoarsenes -: no sob, is amb to restroom and back - Objective Resuscitation Status: Resuscitation Status FULL:Full Resuscitation MAR Reviewed: Yes Vital Signs & Weight: Vital Signs (12 hours) Temp Pulse Resp BP Pulse Ox 06/19/17 10:14 88 22 H 98 06/19/17 08:38 96 163/92 H 06/19/17 07:31 98.6 F 96 16 97 06/19/17 07:00 98.6 F 06/19/17 06:20 99 06/19/17 06:18 88 16 99 06/19/17 06:13 80 184/107 H 06/19/17 04:00 98.6 F 06/19/17 02:53 80 16 97 06/19/17 00:00 98.2 F 06/18/17 22:31 78 16 98 Weight Admit Weight 222 lb Weight 222 lb 3.615 oz Most Recent Monitor Data Heart Rate from ECG 99 NIBP 186/83 NIBP BP-Mean 152 Respiration from ECG 18 SpO2 99 I&O: 06/18/17 06/19/17 06/20/17 06:59 06:59 06:59 Intake Total 3415.25 3410.9 1000 Output Total 753 8780 530 Balance 2662.25 -5369.1 470 Result Diagrams: 06/19/17 03:17 06/19/17 03:17 Additional Labs: Accuchecks 06/19/17 06/18/17 06/18/17 06:16 22:00 16:20 POC Glucose 258 H 210 H 205 H 06/18/17 10:32 POC Glucose 175 H Phys Exam - Physical Examination HEENT: PERRLA, sclera anicteric Neck: no JVD, supple Respiratory: no wheezing, no rales Cardiovascular: RRR, no significant murmur Gastrointestinal: soft, non-tender, positive bowel sounds Musculoskeletal: no edema, pulses present Neurological: non-focal, moves all 4 limbs Psychiatric: A&O x 3 Dx/Plan (1) Acute respiratory failure with hypoxia and hypercapnia Code(s): J96.01 - ACUTE RESPIRATORY FAILURE WITH HYPOXIA; J96.02 - ACUTE RESPIRATORY FAILURE WITH HYPERCAPNIA Status: Resolved (2) Laryngeal mass Code(s): J38.7 - OTHER DISEASES OF LARYNX Status: Acute Comment: s/p laryngoscopy with biopsy (3) Diabetes type 2, controlled Code(s): E11.9 - TYPE 2 DIABETES MELLITUS WITHOUT COMPLICATIONS Status: Chronic Qualifiers: Diabetes mellitus complication status: with unspecified complications Diabetes mellitus penitentiary insulin use: without termite exterminator helper use Qualified Code( s): E11.8 - Type 2 diabetes mellitus with unspecified complications (4) Hypertension Code(s): I10 - ESSENTIAL (PRIMARY) HYPERTENSION Status: Chronic Qualifiers: Hypertension type: essential hypertension Qualified Code(s): I10 - Essential (primary) hypertension (5) Obesity (BMI 30-39.9) Code(s): E66.9 - OBESITY, UNSPECIFIED Status: Chronic - Plan is on ceftriaxone -: nebs and steroids -: may transfer to [facility] floor -: still has hoarseness, ent f/u -: oral full liq diet until cleared by ENT * . Review of Systems - Medications/Allergies Allergies/Adverse Reactions: Allergies Allergy/AdvReac Type Severity Reaction Status Date / Time No Known Drug Allergies Allergy Verified 06/15/17 16:48 Medications: Current Medications Acetaminophen (Tylenol) 650 mg PO Q4H PRN PRN Reason: Headache/Fever or Pain Al Hydroxide/Mg Hydroxide (Maalox) 30 ml PO Q6H PRN PRN Reason: Heartburn or Indigestion Albuterol/Ipratropium (Duoneb) 3 ml NEB [id number] [facility] Last Admin: 06/19/17 10:14 Dose: 3 ml Amlodipine Besylate (Norvasc) 10 mg PO DAILY [facility] Last Admin: 06/19/17 08:38 Dose: 10 mg Artificial Tears (Tears Naturale) 0 drop EA EYE PRN PRN PRN Reason: Dry Eyes Clonidine HCl (Catapres) 0.1 mg PO TID [facility] Last Admin: 06/19/17 08:38 Dose: 0.1 mg Dextrose/Water (Dextrose 50%) 25 gm SLOW IVP PRN PRN PRN Reason: Hypoglycemia Enoxaparin Sodium (Lovenox) 40 mg SC 0900 [facility] Last Admin: 06/19/17 08:38 Dose: 40 mg Glucagon (Glucagon) 1 mg IM PRN PRN PRN Reason: Hypoglycemia Hydralazine HCl (Apresoline) 10 mg SLOW IVP Q4H PRN PRN Reason: Systolic BP > 180 Last Admin: 06/19/17 06:13 Dose: 10 mg Dextrose/Water (D5w) 1,000 mls @ 0 mls/hr IV .Q0M PRN; As Directed PRN Reason: Hypoglycemia Insulin Detemir 10 units/ (Miscellaneous Medication) 0.1 mls @ 0 mls/hr SC HS [facility] Last Admin: 06/18/17 22:05 Dose: 0.1 mls Insulin Detemir 10 units/ (Miscellaneous Medication) 0.1 mls @ 0 mls/hr SC QAM [facility] Last Admin: 06/19/17 08:39 Dose: 0.1 mls Ceftriaxone Sodium 2 gm/ (Sodium Chloride) 100 mls @ 200 mls/hr IVPB 1100 [facility] Last Admin: 06/18/17 10:38 Dose: 100 mls Sodium Chloride (Normal Saline 0.9%) 1,000 mls @ 30 mls/hr IV .Q24H [facility] Last Admin: 06/18/17 15:26 Dose: Not Given Insulin Human Lispro (Humalog) 0 units SC .MODERATE SLIDING SC PRN PRN Reason: Moderate Correctional Scale Last Admin: 06/19/17 06:23 Dose: 6 unit Insulin Human Lispro (Humalog) 0 units SC .BEDTIME SLIDING SC PRN PRN Reason: Bedtime Correctional Scale Last Admin: 06/18/17 22:01 Dose: 2 unit Loperamide HCl (Imodium) 2 mg PO PRN PRN PRN Reason: Diarrhea/Loose Stools Loratadine (Claritin) 10 mg PO DAILYPRN PRN PRN Reason: Sinus Symptoms Magnesium Hydroxide (Milk Of Magnesium) 30 ml PO DAILYPRN PRN PRN Reason: Constipation Mineral Oil/White Petrolatum (Eucerin Cream) 0 gm TOP BIDPRN PRN PRN Reason: Dry Skin Mineral Oil/White Petrolatum (Lacri-Lube Ointment) 0 gm EA EYE PRN PRN PRN Reason: Dry Eyes Ondansetron HCl (Zofran Odt) 4 mg PO Q6H PRN PRN Reason: Nausea/Vomiting Ondansetron HCl (Zofran) 4 mg IVP Q6H PRN PRN Reason: Nausea/Vomiting Pantoprazole Sodium (Protonix) 40 mg IVP Q12HR [facility] Last Admin: 06/19/17 08:39 Dose: 40 mg Senna (Senokot) 2 tab PO HSPRN PRN PRN Reason: Constipation Sodium Chloride ([place] Nasal [place] 0.65%) 0 ml EA NARE QIDPRN PRN PRN Reason: Nasal Congestion Sodium Chloride (Flush - Normal Saline) 10 ml IV BID [facility] Last Admin: 06/19/17 08:39 Dose: 10 ml
[2017-06-19] MEDS: cefTRIAXone\\ROCEPHIN 2 GM in Sodium Chloride 0.9% 100 ML IVPB SCH (11:00)
--- NOTE | 2017-06-19 11:35 | PRG ---
DATE OF SERVICE: 06/19/2017 SUJECTIVE: This morning, she is awake, alert, responsive, in no distress. No stridor. PHYSICAL EXAMINATION: VITAL SIGNS: Blood pressure is 170/85, sats are 98%, respirations 16, pulse 96. She denies any dys phagia or difficulty breathing. CHEST: Decreased breath sounds. No wheezing, crackles, or rubs. CARDIAC: Sinus tachycardia. ABDOMEN: Soft. LABORATORY DATA: White count 10,000, H\T\H is 14 and 43, platelet count normal. Electrolytes are n ormal. IMPRESSION: Status post respiratory failure, presumed upper airway edema from reflux. PLAN: Decadron can be discontinued. She looks like she is improved. She can be transferred out of the ICU to a monitored bed for the next 24 hours.
[2017-06-19] MEDS: Sodium Chloride 0.9% 1,000 ML IV SCH (14:35)
[2017-06-20] MEDS: HumaLOG 300 UNITS/3 ML VIAL SC PRN (06:22)
[2017-06-20 07:44] VITALS: TEMP 98.5
[2017-06-20] MEDS: Insulin Detemir 100 UNITS/ML 10 UNITS in Pre-Filled Syringe SC SCH (08:33)
[2017-06-20] MEDS: Enoxaparin Sodium 40 MG/0.4 ML SYRINGE SC SCH (08:33)
[2017-06-20] MEDS: Amlodipine 10 MG TAB PO SCH (08:33)
[2017-06-20] MEDS: cloNIDine 0.1 MG TAB PO SCH (08:34)
[2017-06-20 08:38] VITALS: BP 125/85
--- NOTE | 2017-06-20 10:36 | PDOC.PN ---
- Subjective Encounter Start Date: 06/20/17 Encounter Start Time: 10:00 Subjective: is sitting in chair, feels good - Objective Resuscitation Status: Resuscitation Status FULL:Full Resuscitation MAR Reviewed: Yes Vital Signs & Weight: Vital Signs (12 hours) Temp Pulse Resp BP Pulse Ox 06/20/17 08:34 125/85 06/20/17 08:33 77 125/85 06/20/17 07:39 98.5 F 77 13 100 06/20/17 06:24 98 06/20/17 06:23 77 13 98 06/20/17 04:00 98 F 06/20/17 02:12 92 18 97 06/20/17 00:00 98 F Weight Admit Weight 222 lb Weight 221 lb 9.033 oz Most Recent Monitor Data Heart Rate from ECG 86 NIBP 125/85 NIBP BP-Mean 106 Respiration from ECG 29 SpO2 99 I&O: 06/19/17 06/20/17 06/21/17 06:59 06:59 06:59 Intake Total 3410.9 2860 480 Output Total 8780 3260 380 Balance -5369.1 -400 100 Result Diagrams: 06/19/17 03:17 06/19/17 03:17 Additional Labs: Accuchecks 06/20/17 06/19/17 06/19/17 06:21 21:25 16:06 POC Glucose 218 H 234 H 330 H 06/19/17 11:07 POC Glucose 289 H Phys Exam - Physical Examination HEENT: PERRLA, moist MMs Neck: no JVD, supple Respiratory: no wheezing, no rales Cardiovascular: RRR, no significant murmur Gastrointestinal: soft, no distention, positive bowel sounds Musculoskeletal: no edema, pulses present Neurological: non-focal, moves all 4 limbs Psychiatric: A&O x 3 Dx/Plan (1) Acute respiratory failure with hypoxia and hypercapnia Code(s): J96.01 - ACUTE RESPIRATORY FAILURE WITH HYPOXIA; J96.02 - ACUTE RESPIRATORY FAILURE WITH HYPERCAPNIA Status: Resolved (2) Laryngeal mass Code(s): J38.7 - OTHER DISEASES OF LARYNX Status: Acute Comment: s/p laryngoscopy with biopsy (3) Diabetes type 2, controlled Code(s): E11.9 - TYPE 2 DIABETES MELLITUS WITHOUT COMPLICATIONS Status: Chronic Qualifiers: Diabetes mellitus complication status: with unspecified complications Diabetes mellitus shelter insulin use: without terminal operator use Qualified Code( s): E11.8 - Type 2 diabetes mellitus with unspecified complications (4) Hypertension Code(s): I10 - ESSENTIAL (PRIMARY) HYPERTENSION Status: Chronic Qualifiers: Hypertension type: essential hypertension Qualified Code(s): I10 - Essential (primary) hypertension (5) Obesity (BMI 30-39.9) Code(s): E66.9 - OBESITY, UNSPECIFIED Status: Chronic - Plan still has hoarseness -: may dc home per 's advice -: to f/u with in 1 week. -: Counselled reg smoking cessation * .
--- NOTE | 2017-06-20 12:47 | PRG ---
DATE OF SERVICE: 06/20/2017 SERVICE: Pulmonary Medicine INTERVAL HISTORY: The patient is absolutely outstanding from a cardiovascular and respiratory stand point. She denies any current fevers, chills, nausea, vomiting or diarrhea. She is breathing comfo rtably. She has hoarseness and sore throat, but otherwise she is breathing very comfortably. She h as no specific complaints presently. PHYSICAL EXAMINATION: VITAL SIGNS: Afebrile. Pulse 77, blood pressure 125/85, respirations 20, saturation 99% on room ai r. GENERAL: The patient is awake, alert, in no apparent distress. LUNGS: Excellent air entry with no prolonged expiratory phase, wheezing, rhonchi or crackles. HEART: Normal rate, regular. ABDOMEN: Soft, nontender, nondistended. Bowel sounds positive. MUSCULOSKELETAL: No cyanosis or clubbing. No pitting in the bilateral lower extremities. NEUROLOGIC: Grossly nonfocal. ASSESSMENT: 1. Metabolic encephalopathy, resolved. 2. Acute hypercapnic respiratory failure, resolved. 3. Extrathoracic airway obstruction, resolved. 4. Arturo's edema. 5. Type 2 diabetes mellitus. 6. Tobacco abuse. PLAN: From a purely pulmonary perspective, the patient is stable for transition out of the hospital . She will need to follow up with [facility] Thro[facility] as previously directed. The patient underst ands that both tobacco smoking, and acid reflux are both contributing to these changes in her upper airway and that she needs to manage both of them. She has no specific need for followup with a pulm onary physician. I will continue to follow if she remains in house.
--- NOTE | 2017-06-21 03:42 | DIS ---
DATE OF ADMISSION: 06/15/2017 DATE OF DISCHARGE: 06/20/2017 DISCHARGE DISPOSITION: To home. PRIMARY DISCHARGE DIAGNOSES: Laryngeal mass with acute respiratory failure with hypoxia, hypercapni a and stridor. SECONDARY DISCHARGE DIAGNOSES: Diabetes mellitus, type 2; hypertension and obesity. PROCEDURES DONE DURING HOSPITALIZATION: The patient has had laryngoscopy done by Dr. Curtis on 05/29, for upper airway obstruction and obstructing laryngeal lesion. 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 Biopsies were obtained. Histopathology of the biopsy f rom vocal cord and larynx shows squamous mucosal fragments with focal ulcer. Special stains were ne gative for fungal forms, it was negative for dysplasia or malignancy. Post-procedure, patient was i ntubated and was on the ventilator, had a white count of 16 with 88% neutrophils on the day of admis lynne. Blood gas done on the day of admission showed a pH of 7.28, PCO2 of 67, pO2 of 71 with bicarb of 30. Strep cultures from her throat were negative. DISCHARGE MEDICATIONS: Omnicef 300 mg p.o. twice daily for another 4 days, Levemir 20 units subcu t wice daily, DuoNebs q.6 hourly, paroxetine 20 mg p.o. daily, Protonix 40 mg p.o. daily, Norvasc 10 m g p.o. daily. ALLERGIES: No known drug allergies. INPATIENT CONSULTS: Dr. Humphries for Pulmonology, Dr. Familia Neil/Dr. Jet Curtis for ENT. DISCHARGE PLAN: The patient to follow up with Dr. Curtis in 1 week. BRIEF COURSE DURING HOSPITALIZATION: The patient initially presented to [facility] ER with complaints of hoarseness and had cough with sore throat for about a week. The patient soon became short of breath and was wheezing with stridor. She was suspected to have laryngitis/epiglottitis. She was evaluated by Dr. Familia Neil and was suspected to have a laryngeal mass. She was admitted to ICU and Dr. Curtis did a direct laryngoscopy with findings as mentioned above. She was intubate d and was successfully extubated on 06/18/2017. Her biopsies from the vocal cord and larynx have no t revealed any malignancy. Prior to discharge, she is ambulating in the room. She still has hoarse ness, but no stridor. She was strongly advised to follow up with Dr. Curtis in 1 week for complete resolution of her symptoms. She has been tolerating oral solid diet. She has been cleared by Dr. Brianne reyes for discharge. Please see a [id number] documentation on [facility] for the day of discharge.
== END 2017-06-20 11:00 | disposition home or self-care (01) | DRG 129 ==
LOC: ERS 14:04 → T4-A 16:41 → IMCU/EMU 06-16 03:58 → CCU 06-16 08:04
PROVIDERS: ADMIT Internal Medicine; ATTEND Internal Medicine
PROC: 0CJS8ZZ Inspection of Larynx, Via Natural or Artificial Opening Endoscopic (ICD-10-PCS; 2017-06-15)
PROC: 5A09357 Assistance with Respiratory Ventilation, Less than 24 Consecutive Hours, Continuous Positive Airway Pressure (ICD-10-PCS; 2017-06-15)
PROC: 0CBS8ZZ Excision of Larynx, Via Natural or Artificial Opening Endoscopic (ICD-10-PCS; principal; 2017-06-16)
PROC: 5A1945Z Respiratory Ventilation, 24-96 Consecutive Hours (ICD-10-PCS; 2017-06-16)
PROC: 0CBT8ZX Excision of Right Vocal Cord, Via Natural or Artificial Opening Endoscopic, Diagnostic (ICD-10-PCS; 2017-06-16)
PROC: 0CBV8ZX Excision of Left Vocal Cord, Via Natural or Artificial Opening Endoscopic, Diagnostic (ICD-10-PCS; 2017-06-16)
DX: J38.1 Polyp of vocal cord and larynx (principal); J96.01 Acute respiratory failure with hypoxia; J96.02 Acute respiratory failure with hypercapnia; G93.41 Metabolic encephalopathy; E87.2 Acidosis; I10 Essential (primary) hypertension; E11.9 Type 2 diabetes mellitus without complications; F17.210 Nicotine dependence, cigarettes, uncomplicated; E66.01 Morbid (severe) obesity due to excess calories; J44.9 Chronic obstructive pulmonary disease, unspecified
CPT/HCPCS: 36415; 36416; 71010; 80048; 80053; 82805; 85007; 85025; 85027; 87081; 87430; 88305; 88312; 90471; 90682; 90732; 94002; 94003; 94640; 94660; 94664; A4216; A4218; C1751; C9113; G0008; G0009; J0171; J0360; J0696; J1100; J1650; J1815; J2060; J2250; J2704; J2920; J3010; J7050; J7620; Q2036

== ENCOUNTER 2021-10-10 00:17 | Inpatient (IN) | payer SELFPAY ==
[2021-10-10 01:10] LABS: #Basophils 0.1 thou/uL (0.0-0.2); #Eosinphils 0.2 thou/uL (0.0-0.7); #Lymphocytes 3.3 thou/uL (1.20-3.40); #Monocytes 0.7 thou/uL (0.11-0.59); %Basophils 0.8 % (0.0-1.0); %Lymphocytes 28.7 % (21.0-51.0); %Monocytes 6.3 % (0.0-10.0); %Neutrophils 62.2 % (42.0-75.0); Hemoglobin 14.8 g/dL (12.0-16.0); Mean Corpuscular HGB CONC 33.9 g/dL (32.0-36.0); Mean Corpuscular Hemoglobin 33.3 pg (27.0-31.0); Mean Corpuscular Volume 98.1 fL (78.0-98.0); Mean Platelet Volume 7.3 fL (7.4-10.4); Platelet Count 286 thou/uL (130-400); RBC Distribution Width 12.1 % (11.5-14.5); Red Blood Cell (RBC) Count 4.46 mill/uL (4.20-5.40); White Blood Cell (WBC) Count 11.3 thou/uL (4.8-10.8)
[2021-10-10 01:18] LABS: INR-International Normal Ratio 0.9; Prothrombin Time 12.5 sec (12.0-14.7)
[2021-10-10 01:38] LABS: ALT (SGPT) 22 U/L (8-55); AST (SGOT) 16 U/L (5-34); Albumin 4.3 g/dL (3.5-5.0); Alkaline Phosphatase 74 U/L (40-110); Anion Gap 13 mmol/L (10-20); BUN (Urea Nitrogen) 23 mg/dL (9.8-20.1); Bilirubin, Total 0.2 mg/dL (0.2-1.2); Calc. Creatinine Clearance 0 mL/min (70-130); Carbon Dioxide 29 mmol/L (22-29); Chloride 100 mmol/L (98-107); Globulin 3.2 g/dL (2.4-3.5); Glucose 122 mg/dL (70-105); Protein, Total 7.5 g/dL (6.0-8.3); Sodium 138 mmol/L (136-145)
[2021-10-10] MEDS ORDERED: Labetalol HCl 100 MG/20 ML VIAL SLOW IVP PRN (02:26)
[2021-10-10] MEDS ORDERED: Ondansetron PF 4 MG/2 ML Vial IVP PRN (02:26)
[2021-10-10] MEDS ORDERED: hydrALAZINE 20 MG/ML VIAL SLOW IVP PRN (02:26)
[2021-10-10] MEDS ORDERED: Acetaminophen 325 MG TAB PO PRN (02:26)
[2021-10-10 04:40] LABS: Bilirubin Negative (Negative); Blood, Urine Negative (Negative); Clarity Clear (Clear); Glucose, Urine (Dipstick) Normal (Negative); Ketone, Urine Negative (Negative); Leukocyte Negative Leu/uL (Negative); Nitrite Negative (Negative); Protein, Urine (Dipstick) Negative (Neg-Trace); Specific Gravity, Urine 1.007 (1.002-1.036); Urobilinogen Normal mg/dL (Less than 2)
[2021-10-10 04:56] VITALS: TEMP 97.8
[2021-10-10 04:59] VITALS: BMI 35.0
[2021-10-10 06:02] LABS: #Basophils 0.1 thou/uL (0.0-0.2); #Eosinphils 0.2 thou/uL (0.0-0.7); #Lymphocytes 3.1 thou/uL (1.20-3.40); #Monocytes 0.5 thou/uL (0.11-0.59); #Neutrophils 5.6 thou/uL (1.40-6.50); %Basophils 0.8 % (0.0-1.0); %Eosinophils 2.4 % (0.0-10.0); %Lymphocytes 32.7 % (21.0-51.0); %Monocytes 5.3 % (0.0-10.0); %Neutrophils 58.8 % (42.0-75.0); Hemoglobin 14.1 g/dL (12.0-16.0); Mean Corpuscular HGB CONC 32.3 g/dL (32.0-36.0); Mean Corpuscular Hemoglobin 31.9 pg (27.0-31.0); Mean Corpuscular Volume 98.6 fL (78.0-98.0); Mean Platelet Volume 7.1 fL (7.4-10.4); Platelet Count 291 thou/uL (130-400); Red Blood Cell (RBC) Count 4.42 mill/uL (4.20-5.40); White Blood Cell (WBC) Count 9.6 thou/uL (4.8-10.8)
[2021-10-10 06:29] LABS: Anion Gap 8 mmol/L (10-20); BUN (Urea Nitrogen) 19 mg/dL (9.8-20.1); Calc. Creatinine Clearance 163 mL/min (70-130); Calcium 9.3 mg/dL (7.8-10.44); Carbon Dioxide 31 mmol/L (22-29); Cardiac Risk 4.1 (Less than 4.5); Chloride 98 mmol/L (98-107); Cholesterol 182 mg/dl (< 200 Desired); Glucose 222 mg/dL (70-105); HDL Cholesterol 44 mg/dL (>60 Neg Risk); LDL Cholesterol, Calculated 115 mg/dL; Potassium 4.4 mmol/L (3.5-5.1); Sodium 133 mmol/L (136-145); Triglycerides 115 mg/dL (Less than 150)
[2021-10-10] MEDS ORDERED: Enoxaparin Sodium 40 MG/0.4 ML SYRINGE SC SCH (09:00)
[2021-10-10 12:14] VITALS: BP 171/90
[2021-10-10 15:25] LABS: SARS-CoV-2 PCR by NAA Not Detected (NotDetected)
== END 2021-10-10 12:15 | disposition home or self-care (01) | DRG 69 ==
LOC: ERS 00:17 → OBSVTOIN 02:13 → NEURO 02:13
PROVIDERS: ADMIT Internal Medicine; ATTEND Hospitalist
DX: G45.9 Transient cerebral ischemic attack, unspecified (principal); Z20.822 Contact with and (suspected) exposure to COVID-19; I10 Essential (primary) hypertension; E11.9 Type 2 diabetes mellitus without complications; F17.210 Nicotine dependence, cigarettes, uncomplicated; F41.9 Anxiety disorder, unspecified; I16.0 Hypertensive urgency; E78.5 Hyperlipidemia, unspecified; R29.702 NIHSS score 2; M19.90 Unspecified osteoarthritis, unspecified site; G89.29 Other chronic pain; M54.9 Dorsalgia, unspecified; Z79.899 Other long term (current) drug therapy; Z79.84 Long term (current) use of oral hypoglycemic drugs; Z71.6 Tobacco abuse counseling; Z79.4 Long term (current) use of insulin
CPT/HCPCS: 36415; 36416; 70450; 70551; 80053; 80061; 81003; 85025; 85610; 85730; 93005; 93306; 93880; 96372; G0378; J1650; U0003; U0005

== ENCOUNTER 2022-02-18 10:40 | Outpatient (CLI) | payer OTHER | END 2022-02-18 10:41 | disposition home or self-care (01) | LOC: BICRAD 10:40 | PROVIDERS: ATTEND Nurse Practitioner Family | DX: M47.816 Spondylosis without myelopathy or radiculopathy, lumbar region (principal); M41.9 Scoliosis, unspecified | CPT/HCPCS: 72110 ==

== ENCOUNTER 2022-07-08 13:39 | Outpatient (CLI) | payer OTHER | END 2022-07-08 13:40 | disposition home or self-care (01) | LOC: MRI 13:39 | PROVIDERS: ATTEND Nurse Practitioner Family | DX: M47.26 Other spondylosis with radiculopathy, lumbar region (principal); M48.061 Spinal stenosis, lumbar region without neurogenic claudication; M47.817 Spondylosis without myelopathy or radiculopathy, lumbosacral region | CPT/HCPCS: 72148 ==

== ENCOUNTER 2022-10-17 13:28 | Observation (INO) | payer OTHER, BC ==
[2022-10-17] MEDS ORDERED: Bisacodyl 10 MG SUPP PR PRN (14:37)
[2022-10-17] MEDS ORDERED: Ondansetron PF 4 MG/2 ML Vial IVP PRN (14:37)
[2022-10-17] MEDS ORDERED: Senokot S 8.6-50 MG TAB PO PRN (14:37)
[2022-10-17] MEDS ORDERED: Acetaminophen 325 MG TAB PO PRN (14:37)
[2022-10-17] MEDS ORDERED: Bisacodyl 5 MG TAB PO PRN (14:37)
[2022-10-17] MEDS ORDERED: Dextrose 50% Abboject 50 ML SYRINGE SLOW IVP PRN (14:45)
[2022-10-17] MEDS ORDERED: Dextrose 5% in Water 1,000 ML IV PRN (14:45)
[2022-10-17] MEDS ORDERED: HumaLOG 300 UNITS/3 ML VIAL SC PRN ×2 (14:45)
[2022-10-17] MEDS ORDERED: diphenhydrAMINE 50 MG CAP PO PRN (14:51)
[2022-10-17] MEDS ORDERED: Magnesium 2 GM/50 ML(in water) 4 GM in Premix Bag 1 BAG IVPB SCH (15:15)
[2022-10-17] MEDS ORDERED: diphenhydrAMINE 50 MG/ML VIAL ONE (15:18)
[2022-10-17] MEDS ORDERED: predniSONE 20 MG TAB ONE (15:18)
[2022-10-17] MEDS ORDERED: Dexamethasone 4 MG TAB ONE (15:18)
[2022-10-17] MEDS ORDERED: Dexamethasone 4 mg/ml Vial ONE (15:19)
[2022-10-17 16:17] VITALS: BMI 37.4
[2022-10-17] MEDS: Loratadine 10 MG TAB PO SCH (19:42)
[2022-10-17] MEDS: Famotidine 20 MG TAB PO SCH (19:42)
[2022-10-18 05:06] LABS: #Lymphocytes 1.3 thou/uL (1.20-3.40); #Monocytes 0.5 thou/uL (0.11-0.59); #Neutrophils 8.8 thou/uL (1.40-6.50); %Basophils 0.2 % (0.0-1.0); %Eosinophils 0.2 % (0.0-10.0); %Monocytes 4.3 % (0.0-10.0); %Neutrophils 83.4 % (42.0-75.0); Hemoglobin 13.8 g/dL (12.0-16.0); Mean Corpuscular HGB CONC 33.3 g/dL (32.0-36.0); Mean Corpuscular Hemoglobin 32.8 pg (27.0-31.0); Mean Corpuscular Volume 98.6 fl (78.0-98.0); Mean Platelet Volume 7.8 fL (7.4-10.4); Platelet Count 269 10x3/uL (130-400); RBC Distribution Width 12.1 % (11.5-14.5); Red Blood Cell (RBC) Count 4.21 mill/uL (4.20-5.40); White Blood Cell (WBC) Count 10.5 10x3/uL (4.8-10.8)
[2022-10-18 05:25] LABS: Hemoglobin A1c 10.7 % (4.0-6.0)
[2022-10-18 05:43] LABS: ALT (SGPT) 21 U/L (8-55); AST (SGOT) 13 U/L (5-34); Albumin 3.6 g/dL (3.5-5.0); Alkaline Phosphatase 74 U/L (40-110); Anion Gap 11 mmol/L (10-20); BUN (Urea Nitrogen) 17 mg/dL (9.8-20.1); Bilirubin, Direct 0.2 mg/dL (0.1-0.3); Bilirubin, Total 0.4 mg/dL (0.2-1.2); Calc. Creatinine Clearance 138 mL/min (70-130); Carbon Dioxide 23 mmol/L (22-29); Cardiac Risk 2.7 (Less than 4.5); Chloride 98 mmol/L (98-107); Cholesterol 144 mg/dl (< 200 Desired); Estimated GFR 98; HDL Cholesterol 54 mg/dL (>60 Neg Risk); LDL Cholesterol, Calculated 78 mg/dL; Magnesium 1.9 mg/dL (1.6-2.6); Potassium 4.4 mmol/L (3.5-5.1); Protein, Total 6.2 g/dL (6.0-8.3); Sodium 128 mmol/L (136-145); Triglycerides 60 mg/dL (Less than 150)
[2022-10-18 05:52] LABS: Glucose 455 mg/dL (70-105)
[2022-10-18] MEDS ORDERED: Insulin Glargine 30 UNITS/0.3 ML VIAL SC SCH (06:00)
[2022-10-18] MEDS ORDERED: predniSONE 20 MG TAB PO SCH (08:00)
[2022-10-18] MEDS ORDERED: glipiZIDE 5 MG TAB PO SCH ×2 (08:15→16:30)
[2022-10-18 08:33] VITALS: BP 163/73; TEMP 98.8
[2022-10-18] MEDS: Famotidine 20 MG TAB PO SCH (08:49)
[2022-10-18] MEDS: Loratadine 10 MG TAB PO SCH (08:52)
[2022-10-18] MEDS ORDERED: metFORMIN 500 MG TAB PO SCH ×2 (09:00→17:00)
[2022-10-18] MEDS ORDERED: PARoxetine 20 MG TAB PO SCH (09:00)
[2022-10-18] MEDS ORDERED: Amlodipine 10 MG TAB PO SCH (09:00)
[2022-10-19] MEDS ORDERED: Insulin Glargine 30 UNITS/0.3 ML VIAL SC SCH (09:00)
[2022-10-20 10:26] LABS: Allergen,Peanut IgE Less than 0.10 kU/L (Less than 0.10)
== END 2022-10-18 10:32 | disposition home or self-care (01) ==
LOC: ERS 13:28 → SUATTDRO 13:28 → 2SW 15:57
PROVIDERS: ADMIT Family Medicine; ATTEND Family Medicine
DX: T78.09XA Anaphylactic reaction due to other food products, initial encounter (principal); E11.9 Type 2 diabetes mellitus without complications; I10 Essential (primary) hypertension; J38.1 Polyp of vocal cord and larynx; F17.210 Nicotine dependence, cigarettes, uncomplicated; Z91.14 Patient's other noncompliance with medication regimen
CPT/HCPCS: 36415; 36416; 80048; 80061; 80076; 83036; 83605; 83735; 84443; 85025; 93005; 93010; 96375; G0378; J1100; J1200; J1815; J3475; J7512; J8540; U0003; U0005

== ENCOUNTER 2022-11-12 18:35 | Emergency (ER) | payer BC, OTHER ==
[2022-11-12 19:31] LABS: #Basophils 0.1 thou/uL (0.0-0.2); #Eosinphils 0.2 thou/uL (0.0-0.7); #Lymphocytes 3.5 thou/uL (1.20-3.40); #Monocytes 0.6 thou/uL (0.11-0.59); #Neutrophils 5.5 thou/uL (1.40-6.50); %Eosinophils 1.9 % (0.0-10.0); %Lymphocytes 35.8 % (21.0-51.0); %Monocytes 5.7 % (0.0-10.0); %Neutrophils 55.6 % (42.0-75.0); Hemoglobin 14.8 g/dL (12.0-16.0); Mean Corpuscular HGB CONC 33.7 g/dL (32.0-36.0); Mean Corpuscular Hemoglobin 32.6 pg (27.0-31.0); Mean Corpuscular Volume 96.5 fl (78.0-98.0); Mean Platelet Volume 7.6 fL (7.4-10.4); Platelet Count 295 10x3/uL (130-400); RBC Distribution Width 12.6 % (11.5-14.5); Red Blood Cell (RBC) Count 4.54 mill/uL (4.20-5.40); White Blood Cell (WBC) Count 9.9 10x3/uL (4.8-10.8)
[2022-11-12 19:52] LABS: ALT (SGPT) 23 U/L (8-55); AST (SGOT) 14 U/L (5-34); Albumin 4.1 g/dL (3.5-5.0); Alkaline Phosphatase 85 U/L (40-110); Anion Gap 16 mmol/L (10-20); BUN (Urea Nitrogen) 11 mg/dL (9.8-20.1); Bilirubin, Total 0.2 mg/dL (0.2-1.2); Calc. Creatinine Clearance 0 mL/min (70-130); Calcium 9.4 mg/dL (7.8-10.44); Carbon Dioxide 25 mmol/L (22-29); Chloride 95 mmol/L (98-107); Estimated GFR 104; Globulin 2.7 g/dL (2.4-3.5); Glucose 310 mg/dL (70-105); Potassium 3.9 mmol/L (3.5-5.1); Protein, Total 6.8 g/dL (6.0-8.3); Sodium 132 mmol/L (136-145)
== END 2022-11-12 22:44 | disposition home or self-care (01) ==
LOC: ERS 18:35
DX: E11.65 Type 2 diabetes mellitus with hyperglycemia (principal); R22.32 Localized swelling, mass and lump, left upper limb; F17.200 Nicotine dependence, unspecified, uncomplicated; I10 Essential (primary) hypertension; F17.210 Nicotine dependence, cigarettes, uncomplicated; Z79.84 Long term (current) use of oral hypoglycemic drugs
CPT/HCPCS: 36415; 71045; 71275; 80053; 83880; 84484; 85025; 93005